=== PATIENT | female | born 1985 | race African-American/Black ===

== ENCOUNTER 2018-02-12 | Emergency (ER) | payer OTHER ==
[~2018-02-12] VITALS: Ht 160 cm; Wt 63.6 kg
[2018-02-12 00:05] VITALS: BP 124/83; TEMP 98.1
[2018-02-12 00:35] LABS: COLLECTION METHOD CLEAN CATCH
[2018-02-12 00:50] LABS: PH 5 (5-8); URINE APPEARANCE Cloudy; URINE BACTERIA Rare /hpf; URINE BILIRUBIN Negative (NEGATIVE); URINE BLOOD 3+ (NEGATIVE); URINE COLOR Yellow; URINE GLUCOSE Negative (NEGATIVE); URINE KETONE Negative (NEGATIVE); URINE LEUKOCYTE ESTERASE 2+ (NEGATIVE); URINE NITRATE Negative (NEGATIVE); URINE PROTEIN(semi-quant) 2+ (NEGATIVE); URINE RBC >50 /hpf; URINE UROBILINOGEN Negative (NEGATIVE)
[2018-02-12 01:20] LABS: BASO % 0.4 % (0.0-2.0); EOS # 0.2 (0.0-0.7); EOS % 2.7 % (0-4.0); GRAN # 4.9 (1.4-6.5); HEMOGLOBIN 12.4 g/dl (12.5-16.0); LYMPH # 1.6 (1.2-3.4); LYMPH % 20.6 % (20.0-51.0); MEAN CELL VOLUME 88 fl (80.0-100.0); MEAN CORPUSCULAR HEMOGLOBIN 30 pg (27.0-31.0); MEAN CORPUSCULAR HGB CONC 34 g/dl (33.0-37.0); MEAN PLATELET VOLUME 10.3 fl (7.4-10.4); MONO # 0.9 (0.1-0.6); PLATELET COUNT 226 K/mm3 (130-400); RED BLOOD COUNT 4.21 M/mm3 (4.10-5.30); REDCELL DISTRIBUTION WIDTH-CV 11.5 % (11.5-14.5)
[2018-02-12 01:22] LABS: HEMATOCRIT 36.9 % (37.0-47.0)
[2018-02-12 01:30] LABS: ALBUMIN 4.2 gm/dL (3.5-5.0); BILIRUBIN,TOTAL 0.3 mg/dL (0.0-1.0); CALCIUM 9.3 mg/dL (8.4-10.2); CREATININE, serum 0.81 mg/dL (0.52-1.25); TOTAL PROTEIN 8.1 gm/dL (6.4-8.2)
[2018-02-12] MEDS ORDERED: CEFTIN 250250 MG/TAB PO (01:54)
[2018-02-12] MEDS ORDERED: NORCO 325 MG-51 TAB PO (01:55)
[2018-02-12 02:54] VITALS: PULSE 85
== END 2018-02-12 02:53 | disposition home or self-care (01) ==
LOC: COL.ER
PROVIDERS: Emergency Medicine; Nurse Practitioner
DX: N39.0 Urinary tract infection, site not specified (principal); Z87.448 Personal history of other diseases of urinary system; Z88.5 Allergy status to narcotic agent; Z98.51 Tubal ligation status
CPT/HCPCS: J0696; J1885; J2405; J7030

== ENCOUNTER 2018-02-24 23:31 | Emergency (ER) | payer OTHER ==
[~2018-02-24] VITALS: Ht 160 cm; Wt 69.1 kg
[~2018-02-24 23:31] MED LIST: CEFTIN 250250 MG/TAB PO; NORCO 325 MG-51 TAB PO
[2018-02-24 23:49] VITALS: BP 120/87; TEMP 97.4
[2018-02-25 00:33] LABS: COLLECTION METHOD CLEAN CATCH
[2018-02-25 00:38] LABS: MUCOUS Present /lpf; PH 5 (5-8); SQUAMOUS EPITHELIAL None Seen /hpf; URINE APPEARANCE Clear; URINE BACTERIA None Seen /hpf; URINE BILIRUBIN Negative (NEGATIVE); URINE BLOOD 1+ (NEGATIVE); URINE COLOR Yellow; URINE GLUCOSE Negative (NEGATIVE); URINE KETONE Negative (NEGATIVE); URINE LEUKOCYTE ESTERASE Negative (NEGATIVE); URINE NITRATE Negative (NEGATIVE); URINE PROTEIN(semi-quant) Negative (NEGATIVE); URINE RBC 0-2 /hpf; URINE UROBILINOGEN Negative (NEGATIVE)
[2018-02-25] MEDS ORDERED: ZOVIRAX400 MG PO ×2 (00:54→01:13)
[2018-02-25] MEDS ORDERED: FLAGYL500 MG PO ×2 (00:58→01:13)
[2018-02-25 01:19] VITALS: PULSE 77
== END 2018-02-25 01:21 | disposition home or self-care (01) ==
LOC: COL.ER 23:31
PROVIDERS: Physician Assistant
DX: R10.2 Pelvic and perineal pain (principal); K21.9 Gastro-esophageal reflux disease without esophagitis; E03.9 Hypothyroidism, unspecified

== ENCOUNTER 2018-04-25 20:56 | Emergency (ER) | payer OTHER ==
[~2018-04-25] VITALS: Ht 160 cm; Wt 61.4 kg
[~2018-04-25 20:56] MED LIST changes: +FLAGYL500 MG PO; +ZOVIRAX400 MG PO
[2018-04-25 21:01] VITALS: TEMP 98
[2018-04-25] MEDS ORDERED: SYNTHROID 0.0.025 MG PO (21:16)
[2018-04-25] MEDS ORDERED: DRISDOL50000 IU PO (21:17)
[2018-04-25] MEDS ORDERED: ZANTAC 150150 MG (21:17)
[2018-04-25] MEDS ORDERED: BENTYL 20MG20 MG/TAB PO (21:17)
[2018-04-25 21:46] LABS: BASO % 0.7 % (0.0-2.0); EOS # 0.1 (0.0-0.7); EOS % 2.5 % (0-4.0); GRAN # 3.3 (1.4-6.5); GRAN % 57.6 % (42.2-75.2); LYMPH # 1.5 (1.2-3.4); LYMPH % 25.7 % (20.0-51.0); MEAN CELL VOLUME 89 fl (80.0-100.0); MEAN CORPUSCULAR HEMOGLOBIN 30 pg (27.0-31.0); MEAN CORPUSCULAR HGB CONC 33 g/dl (33.0-37.0); MEAN PLATELET VOLUME 10.3 fl (7.4-10.4); MONO # 0.7 (0.1-0.6); MONO % 13.1 % (1.7-9.3); PLATELET COUNT 220 K/mm3 (130-400); RED BLOOD COUNT 3.73 M/mm3 (4.10-5.30); REDCELL DISTRIBUTION WIDTH-CV 11.4 % (11.5-14.5)
[2018-04-25 21:47] LABS: HEMATOCRIT 33.1 % (37.0-47.0)
[2018-04-25 22:03] LABS: ALBUMIN 3.5 gm/dL (3.5-5.0); BILIRUBIN,TOTAL 0.4 mg/dL (0.0-1.0); CALCIUM 8.3 mg/dL (8.4-10.2); CREATININE, serum 0.69 mg/dL (0.52-1.25); POTASSIUM 3.8 mmol/L (3.4-5.0); TOTAL PROTEIN 6.5 gm/dL (6.4-8.2)
[2018-04-25 22:13] LABS: COLLECTION METHOD CLEAN CATCH
[2018-04-25 22:23] LABS: MUCOUS Present /lpf; PH 9 (5-8); SQUAMOUS EPITHELIAL 0-2 /hpf; URINE APPEARANCE Clear; URINE BACTERIA None Seen /hpf; URINE BILIRUBIN Negative (NEGATIVE); URINE BLOOD 2+ (NEGATIVE); URINE COLOR Yellow; URINE GLUCOSE Negative (NEGATIVE); URINE KETONE Negative (NEGATIVE); URINE LEUKOCYTE ESTERASE Trace (NEGATIVE); URINE NITRATE Negative (NEGATIVE); URINE PROTEIN(semi-quant) 1+ (NEGATIVE); URINE RBC >50 /hpf; URINE UROBILINOGEN Negative (NEGATIVE)
[2018-04-25 22:33] LABS: THYROID STIMULATING HORMONE 4.81 uIU/mL (0.465-4.680)
[2018-04-25] MEDS ORDERED: ZOFRAN ODT4 MG PO (22:53)
[2018-04-25 23:00] VITALS: BP 99/62; PULSE 69
== END 2018-04-25 23:00 | disposition home or self-care (01) ==
LOC: COL.ER 20:56
PROVIDERS: Physician Assistant
DX: N20.0 Calculus of kidney (principal); N39.0 Urinary tract infection, site not specified; E03.9 Hypothyroidism, unspecified; F41.9 Anxiety disorder, unspecified; Z98.51 Tubal ligation status

== ENCOUNTER 2018-11-01 02:13 | Emergency (ER) | payer OTHER ==
[~2018-11-01] VITALS: Ht 160 cm; Wt 61.4 kg
[~2018-11-01 02:13] MED LIST changes: +BENTYL 20MG20 MG/TAB PO; +DRISDOL50000 IU PO; +SYNTHROID 0.0.025 MG PO; +ZANTAC 150150 MG; +ZOFRAN ODT4 MG PO
[2018-11-01 02:20] VITALS: TEMP 98.9
[2018-11-01] MEDS ORDERED: ZOFRAN ODT4 MG PO (02:43)
[2018-11-01 06:45] VITALS: BP 93/62; PULSE 78
== END 2018-11-01 07:11 | disposition home or self-care (01) ==
LOC: COL.ER 02:13
DX: K52.9 Noninfective gastroenteritis and colitis, unspecified (principal); E03.9 Hypothyroidism, unspecified
CPT/HCPCS: J2550

== ENCOUNTER 2019-10-09 18:28 | Emergency (ER) | payer OTHER ==
[~2019-10-09] VITALS: Ht 160 cm; Wt 63.6 kg
[~2019-10-09 18:28] MED LIST changes: +PHENERGAN 25 TA25 MG PO; +SYNTHROID0.05 MG/TA PO
[2019-10-09 18:33] VITALS: BP 129/77; TEMP 99.7
[2019-10-09 19:00] LABS: BASO % 0.8 % (0.0-2.0); EOS # 0.1 (0.0-0.7); GRAN # 4.1 (1.4-6.5); GRAN % 78.2 % (42.2-75.2); HEMATOCRIT 39.3 % (37.0-47.0); HEMOGLOBIN 12.9 g/dl (12.5-16.0); LYMPH # 0.6 (1.2-3.4); LYMPH % 10.6 % (20.0-51.0); MEAN CELL VOLUME 90 fl (80.0-100.0); MEAN CORPUSCULAR HEMOGLOBIN 30 pg (27.0-31.0); MEAN CORPUSCULAR HGB CONC 33 g/dl (33.0-37.0); MEAN PLATELET VOLUME 10.3 fl (7.4-10.4); MONO # 0.5 (0.1-0.6); PLATELET COUNT 224 K/mm3 (130-400); RED BLOOD COUNT 4.36 M/mm3 (4.10-5.30); REDCELL DISTRIBUTION WIDTH-CV 11.1 % (11.5-14.5)
[2019-10-09 19:14] LABS: ALANINE AMINOTRANSFERASE 16 U/L (9-52); ALBUMIN 4.8 gm/dL (3.5-5.0); ALKALINE PHOSPHATASE 54 U/L (50-136); ANION GAP 10 mmol/L (7-16); AST,SGOT 26 U/L (15-37); BILIRUBIN,TOTAL 0.4 mg/dL (0.0-1.0); BLOOD UREA NITROGEN 11 mg/dL (7-17); C-REACTIVE PROTEIN < 0.5 mg/dL (0.0-0.9); CALCIUM 9.9 mg/dL (8.4-10.2); CARBON DIOXIDE 25 mmol/L (22-30); CHLORIDE 105 mmol/L (98-107); CREATININE, serum 0.72 (0.52-1.25); GLUCOSE 83 mg/dL (74-106); POTASSIUM 3.9 mmol/L (3.4-5.0); SODIUM 139 mmol/L (137-145); TOTAL PROTEIN 8.5 gm/dL (6.4-8.2)
[2019-10-09 20:03] VITALS: PULSE 91
== END 2019-10-09 20:03 | disposition home or self-care (01) ==
LOC: COL.ER 18:28
PROVIDERS: Nurse Practitioner
DX: J09.X2 Influenza due to identified novel influenza A virus with other respiratory manifestations (principal); Z88.5 Allergy status to narcotic agent; Z98.51 Tubal ligation status; Z91.013 Allergy to seafood
CPT/HCPCS: J2405; J7030

== ENCOUNTER 2020-01-15 17:16 | Emergency (ER) | payer OTHER ==
[~2020-01-15] VITALS: Ht 160 cm; Wt 61.4 kg
[2020-01-15] MEDS ORDERED: ZYRTEC 10MG10 MG PO (17:34)
[2020-01-15 18:17] LABS: BASO % 1.1 % (0.0-2.0); EOS # 0.1 (0.0-0.7); EOS % 2.5 % (0-4.0); GRAN # 2.2 (1.4-6.5); GRAN % 59.3 % (42.2-75.2); HEMOGLOBIN 11.8 g/dl (12.5-16.0); LYMPH # 0.7 (1.2-3.4); LYMPH % 20.2 % (20.0-51.0); MEAN CELL VOLUME 89 fl (80.0-100.0); MEAN CORPUSCULAR HEMOGLOBIN 30 pg (27.0-31.0); MEAN CORPUSCULAR HGB CONC 33 g/dl (33.0-37.0); MEAN PLATELET VOLUME 10.6 fl (7.4-10.4); MONO # 0.6 (0.1-0.6); MONO % 16.3 % (1.7-9.3); PLATELET COUNT 219 K/mm3 (130-400); RED BLOOD COUNT 3.98 M/mm3 (4.10-5.30); REDCELL DISTRIBUTION WIDTH-CV 11.4 % (11.5-14.5)
[2020-01-15 18:22] LABS: HEMATOCRIT 35.6 % (37.0-47.0)
[2020-01-15 18:32] LABS: ALANINE AMINOTRANSFERASE 15 U/L (4-34); ALBUMIN 4.4 gm/dL (3.5-5.0); ALKALINE PHOSPHATASE 52 U/L (50-136); ANION GAP 10 mmol/L (7-16); AST,SGOT 29 U/L (15-37); BILIRUBIN,TOTAL 0.3 mg/dL (0.0-1.0); BLOOD UREA NITROGEN 13 mg/dL (7-17); CALCIUM 9.2 mg/dL (8.4-10.2); CARBON DIOXIDE 23 mmol/L (22-30); CHLORIDE 106 mmol/L (98-107); CREATININE, serum 0.71 (0.52-1.25); GLUCOSE 94 mg/dL (74-106); POTASSIUM 3.9 mmol/L (3.4-5.0); SODIUM 140 mmol/L (137-145); TOTAL PROTEIN 7.6 gm/dL (6.4-8.2)
[2020-01-15 18:33] LABS: C-REACTIVE PROTEIN < 0.5 mg/dL (0.0-0.9)
[2020-01-15 18:38] LABS: STREP SCREEN NEGATIVE
[2020-01-15 19:16] VITALS: BP 140/89; PULSE 97; TEMP 101.4
== END 2020-01-15 19:25 | disposition home or self-care (01) ==
LOC: COL.ER 17:16
PROVIDERS: Emergency Medicine
DX: R05 Cough (principal); M79.7 Fibromyalgia; E03.9 Hypothyroidism, unspecified; Z88.5 Allergy status to narcotic agent
CPT/HCPCS: J7030

== ENCOUNTER 2020-01-24 11:34 | Inpatient (IN) | payer OTHER ==
[~2020-01-24] VITALS: Ht 160 cm; Wt 73.5 kg
[~2020-01-24 11:34] MED LIST changes: -SYNTHROID 0.0.025 MG PO; +ZYRTEC 10MG10 MG PO
[2020-01-24 12:21] LABS: COLLECTION METHOD CLEAN CATCH
[2020-01-24 12:31] LABS: MUCOUS Present /lpf; PH 8 (5-8); URINE APPEARANCE Hazy; URINE BACTERIA None Seen /hpf; URINE BILIRUBIN Negative (NEGATIVE); URINE BLOOD Negative (NEGATIVE); URINE COLOR Yellow; URINE GLUCOSE Negative (NEGATIVE); URINE KETONE Trace (NEGATIVE); URINE LEUKOCYTE ESTERASE Negative (NEGATIVE); URINE NITRATE Negative (NEGATIVE); URINE PROTEIN(semi-quant) 1+ (NEGATIVE); URINE RBC 0-2 /hpf; URINE UROBILINOGEN >=4.0 mg/dL (NEGATIVE)
[2020-01-24 12:39] LABS: BASO % 0.2 % (0.0-2.0); EOS % 0.5 % (0-4.0); GRAN # 2.3 (1.4-6.5); GRAN % 51.8 % (42.2-75.2); HEMATOCRIT 37.3 % (37.0-47.0); HEMOGLOBIN 12.5 g/dl (12.5-16.0); LYMPH # 1.7 (1.2-3.4); LYMPH % 38.7 % (20.0-51.0); MEAN CELL VOLUME 87 fl (80.0-100.0); MEAN CORPUSCULAR HEMOGLOBIN 29 pg (27.0-31.0); MEAN CORPUSCULAR HGB CONC 34 g/dl (33.0-37.0); MEAN PLATELET VOLUME 11.1 fl (7.4-10.4); MONO # 0.4 (0.1-0.6); MONO % 8.8 % (1.7-9.3); PLATELET COUNT 200 K/mm3 (130-400); RED BLOOD COUNT 4.31 M/mm3 (4.10-5.30); REDCELL DISTRIBUTION WIDTH-CV 11.2 % (11.5-14.5)
[2020-01-24 12:40] LABS: ALANINE AMINOTRANSFERASE 15 U/L (4-34); ALBUMIN 4.6 gm/dL (3.5-5.0); ALKALINE PHOSPHATASE 56 U/L (50-136); ANION GAP 10 mmol/L (7-16); AST,SGOT 30 U/L (15-37); BILIRUBIN,TOTAL 0.6 mg/dL (0.0-1.0); BLOOD UREA NITROGEN 10 mg/dL (7-17); C-REACTIVE PROTEIN < 0.5 mg/dL (0.0-0.9); CALCIUM 9.3 mg/dL (8.4-10.2); CARBON DIOXIDE 25 mmol/L (22-30); CHLORIDE 103 mmol/L (98-107); CREATININE, serum 0.64 (0.52-1.25); GLUCOSE 91 mg/dL (74-106); LIPASE 81 U/L (23-300); MAGNESIUM 1.8 mg/dL (1.6-2.3); POTASSIUM 3.5 mmol/L (3.4-5.0); SODIUM 139 mmol/L (137-145); TOTAL PROTEIN 8.2 gm/dL (6.4-8.2)
[2020-01-24 15:17] VITALS: BP 107/82; PULSE 91; TEMP 98.6
[2020-01-24 16:06] LABS: INR 1.1 (0.8-3.0); PROTHROMBIN TIME 12.9 SECONDS (9.7-12.8)
[2020-01-24 16:13] LABS: CREATINE KINASE 120 U/L (30-135); LACTATE DEHYDROGENASE 771 U/L (313-618)
[2020-01-24 16:33] LABS: TROPONIN-I < 0.012 ng/mL (0.000-0.035)
[2020-01-24 17:01] VITALS: BP 114/81; PULSE 80; TEMP 98
--- NOTE | 2020-01-24 20:15 | NUR ---
Assessment complete; VS stable. Denies any concerns at this time. Will continue to monitor.
[2020-01-24 21:06] VITALS: BP 96/60; PULSE 71; TEMP 97.9
[2020-01-25 00:04] VITALS: BP 110/75; PULSE 74; TEMP 98.8
[2020-01-25 05:30] LABS: BASO % 0.6 % (0.0-2.0); EOS # 0.1 (0.0-0.7); EOS % 1.4 % (0-4.0); GRAN # 1.5 (1.4-6.5); GRAN % 40.8 % (42.2-75.2); HEMOGLOBIN 10.6 g/dl (12.5-16.0); LYMPH # 1.6 (1.2-3.4); LYMPH % 44.1 % (20.0-51.0); MEAN CELL VOLUME 90 fl (80.0-100.0); MEAN CORPUSCULAR HEMOGLOBIN 30 pg (27.0-31.0); MEAN CORPUSCULAR HGB CONC 33 g/dl (33.0-37.0); MEAN PLATELET VOLUME 10.9 fl (7.4-10.4); MONO # 0.5 (0.1-0.6); MONO % 12.8 % (1.7-9.3); PLATELET COUNT 167 K/mm3 (130-400); RED BLOOD COUNT 3.59 M/mm3 (4.10-5.30); REDCELL DISTRIBUTION WIDTH-CV 11.3 % (11.5-14.5)
[2020-01-25 05:32] LABS: HEMATOCRIT 32.3 % (37.0-47.0)
[2020-01-25 05:42] LABS: ALBUMIN 3.6 gm/dL (3.5-5.0); BILIRUBIN,TOTAL 0.5 mg/dL (0.0-1.0); CALCIUM 7.9 mg/dL (8.4-10.2); CREATININE, serum 0.6 (0.52-1.25); MAGNESIUM 1.8 mg/dL (1.6-2.3); TOTAL PROTEIN 6.6 gm/dL (6.4-8.2)
[2020-01-25 06:05] VITALS: BP 110/75; PULSE 67; TEMP 97.5
--- NOTE | 2020-01-25 06:08 | NUR ---
At bedside to assist up to commode. Patient reports nausea has mostly subsided and requesting to try jello. No other concerns at this time. Will continue to monitor.
--- NOTE | 2020-01-25 07:30 | NUR ---
Recieved report from CHELSEA Madird. Patient is resting comfortably in bed. Call light and bedside table within reach
[2020-01-25 08:00] VITALS: BP 97/65; PULSE 66; TEMP 97.9
--- NOTE | 2020-01-25 10:15 | NUR ---
SW contacted the patient's phone to discuss discharge plan. The patient lives in [place] with her fiance, Shay Fritz ([phone]), and her six children. She states that Shay is taking care of them while she is here. She reports independence with ADLs and does not have any DME. The patient's PCP is Dr. Clay Espino and she receives her medications at [facility]. She reports no difficulties obtaining her meds. The patient does not have advanced directives completed. She states that her mother, Autumn Clarke ([phone]) is her legal next of kin. The patient plans to return home with her fiance and children upon discharge. The patient is COVID19 positive. No additional needs at this time, but SW to continue to follow as needed.
[2020-01-25 12:00] VITALS: BP 112/66; PULSE 80; TEMP 98.1
[2020-01-25 16:00] VITALS: BP 105/77; PULSE 81; TEMP 97.9
--- NOTE | 2020-01-25 19:45 | NUR ---
This nurse gave report to CHELSEA Madrid. Patient is resting comfortably in bed. Call light and bedside table are within reach.
--- NOTE | 2020-01-25 22:15 | NUR ---
Patient reporting mild nausea; administered PRN zofran. Denies any other complaints at this time. Will continue to monitor.
[2020-01-25 22:20] VITALS: BP 98/68; PULSE 75; TEMP 97.6
--- NOTE | 2020-01-26 01:29 | NUR ---
Up to commode independently; no concerns at this time.
[2020-01-26 01:50] VITALS: PULSE 62
[2020-01-26 05:28] VITALS: BP 111/53; PULSE 72; TEMP 97
--- NOTE | 2020-01-26 05:32 | NUR ---
At bedside" patient reports feeling "better" . Denies any nausea. Also reports a return of her sense of taste and smell. No concerns and this time. Will continue to monitor.
[2020-01-26 06:39] LABS: BASO % 0.3 % (0.0-2.0); EOS # 0.1 (0.0-0.7); EOS % 2.8 % (0-4.0); GRAN # 1.3 (1.4-6.5); GRAN % 45.8 % (42.2-75.2); HEMOGLOBIN 10.8 g/dl (12.5-16.0); LYMPH # 1.1 (1.2-3.4); LYMPH % 38.3 % (20.0-51.0); MEAN CELL VOLUME 90 fl (80.0-100.0); MEAN CORPUSCULAR HEMOGLOBIN 29 pg (27.0-31.0); MEAN CORPUSCULAR HGB CONC 32 g/dl (33.0-37.0); MEAN PLATELET VOLUME 10.9 fl (7.4-10.4); MONO # 0.4 (0.1-0.6); MONO % 12.5 % (1.7-9.3); PLATELET COUNT 176 K/mm3 (130-400); RED BLOOD COUNT 3.76 M/mm3 (4.10-5.30); REDCELL DISTRIBUTION WIDTH-CV 11.2 % (11.5-14.5)
[2020-01-26 06:45] LABS: HEMATOCRIT 33.7 % (37.0-47.0)
[2020-01-26 06:58] LABS: ALBUMIN 3.7 gm/dL (3.5-5.0); BILIRUBIN,TOTAL 0.5 mg/dL (0.0-1.0); CALCIUM 8.3 mg/dL (8.4-10.2); CREATININE, serum 0.59 (0.52-1.25); POTASSIUM 3.8 mmol/L (3.4-5.0); TOTAL PROTEIN 6.9 gm/dL (6.4-8.2)
[2020-01-26 09:34] VITALS: BP 112/76; PULSE 77; TEMP 98
[2020-01-26] MEDS ORDERED: ZOFRAN ODT4 MG PO (10:53)
[2020-01-26] MEDS ORDERED: OMNICEF 300MG300 MG PO (11:04)
[2020-01-26] MEDS ORDERED: DOXYCYCLINE HY100 MG PO (11:04)
--- NOTE | 2020-01-26 14:43 | NUR ---
patient is alert and oriented. denies any pain. complain of nausea in the morning. i administered Zofran IV once. patient said she is breathing better. IV was discontinued. patient discharged with prescription for Deoxycycline, Cefdinir, and zofran. patient received education on COVID19, dehydration, fever, nausea and vomit, and new medication.
== END 2020-01-26 13:58 | disposition home or self-care (01) | DRG 177 ==
LOC: COL.ER 11:34 → EU 14:43 → COL.ER 14:43 → EU 14:43
PROVIDERS: Emergency Medicine; Physician Assistant; ADMIT Hospitalist
DX: U07.1 COVID-19 (principal); J15.9 Unspecified bacterial pneumonia; I95.9 Hypotension, unspecified; E03.9 Hypothyroidism, unspecified; D72.810 Lymphocytopenia; R11.2 Nausea with vomiting, unspecified; E86.0 Dehydration; Z09 Encounter for follow-up examination after completed treatment for conditions other than malignant neoplasm; Z87.442 Personal history of urinary calculi; Z98.51 Tubal ligation status
CPT/HCPCS: 99222-AI; 99233-AI; 99239; A4216; C9113; J0456; J0696; J2405; J3480; J7030; J7050

== ENCOUNTER 2020-02-02 15:53 | Emergency (ER) | payer OTHER ==
[~2020-02-02] VITALS: Ht 160 cm; Wt 68.2 kg
[~2020-02-02 15:53] MED LIST changes: +DOXYCYCLINE HY100 MG PO; +OMNICEF 300MG300 MG PO
[2020-02-02 16:51] LABS: BASO % 0.9 % (0.0-2.0); EOS # 0.1 (0.0-0.7); EOS % 2.8 % (0-4.0); GRAN % 42.4 % (42.2-75.2); HEMOGLOBIN 11.5 g/dl (12.5-16.0); LYMPH # 1.9 (1.2-3.4); LYMPH % 40.8 % (20.0-51.0); MEAN CELL VOLUME 88 fl (80.0-100.0); MEAN CORPUSCULAR HEMOGLOBIN 29 pg (27.0-31.0); MEAN CORPUSCULAR HGB CONC 33 g/dl (33.0-37.0); MEAN PLATELET VOLUME 10.5 fl (7.4-10.4); MONO # 0.6 (0.1-0.6); MONO % 12.9 % (1.7-9.3); PLATELET COUNT 277 K/mm3 (130-400); RED BLOOD COUNT 3.92 M/mm3 (4.10-5.30); REDCELL DISTRIBUTION WIDTH-CV 11.7 % (11.5-14.5)
[2020-02-02 16:52] LABS: HEMATOCRIT 34.5 % (37.0-47.0)
[2020-02-02 17:02] LABS: COLLECTION METHOD CLEAN CATCH
[2020-02-02 17:04] LABS: ALANINE AMINOTRANSFERASE 35 U/L (4-34); ALBUMIN 4.6 gm/dL (3.5-5.0); ALKALINE PHOSPHATASE 51 U/L (50-136); ANION GAP 8 mmol/L (7-16); AST,SGOT 31 U/L (15-37); BILIRUBIN,TOTAL 0.5 mg/dL (0.0-1.0); BLOOD UREA NITROGEN 12 mg/dL (7-17); CALCIUM 9.8 mg/dL (8.4-10.2); CARBON DIOXIDE 24 mmol/L (22-30); CHLORIDE 106 mmol/L (98-107); CREATININE, serum 0.75 (0.52-1.25); GLUCOSE 97 mg/dL (74-106); POTASSIUM 3.8 mmol/L (3.4-5.0); SODIUM 138 mmol/L (137-145); TOTAL PROTEIN 8.3 gm/dL (6.4-8.2)
[2020-02-02 17:10] LABS: MUCOUS Present /lpf; PH 7 (5-8); URINE APPEARANCE Hazy; URINE BACTERIA None Seen /hpf; URINE BILIRUBIN Negative (NEGATIVE); URINE BLOOD Negative (NEGATIVE); URINE COLOR Yellow; URINE GLUCOSE Negative (NEGATIVE); URINE KETONE Negative (NEGATIVE); URINE LEUKOCYTE ESTERASE Negative (NEGATIVE); URINE NITRATE Negative (NEGATIVE); URINE PROTEIN(semi-quant) Negative (NEGATIVE); URINE RBC 0-2 /hpf; URINE UROBILINOGEN Negative (NEGATIVE)
[2020-02-02 17:15] LABS: C-REACTIVE PROTEIN < 0.5 mg/dL (0.0-0.9); TROPONIN-I < 0.012 ng/mL (0.000-0.035)
[2020-02-02] MEDS ORDERED: ZOFRAN ODT4 MG PO (18:09)
[2020-02-02 19:05] VITALS: BP 107/62; PULSE 95; TEMP 98.4
== END 2020-02-02 19:05 | disposition home or self-care (01) ==
LOC: COL.ER 15:53
PROVIDERS: Nurse Practitioner
DX: R55 Syncope and collapse (principal); U07.1 COVID-19; E03.9 Hypothyroidism, unspecified; Z98.51 Tubal ligation status; Z88.5 Allergy status to narcotic agent
CPT/HCPCS: J7030; Q9967

== ENCOUNTER 2021-09-04 03:37 | Emergency (ER) | payer OTHER ==
[~2021-09-04] VITALS: Ht 160 cm; Wt 66.4 kg
[2021-09-04 03:43] VITALS: TEMP 98.1
[2021-09-04 04:05] LABS: COLLECTION METHOD CLEAN CATCH
[2021-09-04 04:22] LABS: MUCOUS Present (NOT PRESENT); PH 7 (5-8); SQUAMOUS EPITHELIAL 0-2 /hpf (0-10); URINE APPEARANCE Clear (CLEAR/HAZY); URINE BACTERIA None Seen (NONE SEEN); URINE BILIRUBIN Negative (NEGATIVE); URINE BLOOD Negative (NEGATIVE); URINE COLOR Yellow (YELLOW); URINE GLUCOSE Negative (NEGATIVE); URINE KETONE Negative (NEGATIVE); URINE LEUKOCYTE ESTERASE Negative (NEGATIVE); URINE NITRATE Negative (NEGATIVE); URINE PROTEIN(semi-quant) Negative (NEGATIVE); URINE RBC None Seen /hpf (0-2); URINE UROBILINOGEN Negative (NEGATIVE)
[2021-09-04 04:29] LABS: BASO # 0.1 K/mm3 (0.0-0.2); EOS # 0.2 K/mm3 (0.0-0.7); EOS % 4.9 % (0-4.0); GRAN # 1.9 K/mm3 (1.4-6.5); GRAN % 38.7 % (42.2-75.2); HEMOGLOBIN 12.3 g/dl (12.5-16.0); LYMPH % 40.7 % (20.0-51.0); MEAN CELL VOLUME 88 fl (80.0-100.0); MEAN CORPUSCULAR HEMOGLOBIN 30 pg (27.0-31.0); MEAN CORPUSCULAR HGB CONC 34 g/dl (33.0-37.0); MEAN PLATELET VOLUME 10.4 fl (7.4-10.4); MONO # 0.7 K/mm3 (0.1-0.6); MONO % 14.5 % (1.7-9.3); PLATELET COUNT 265 K/mm3 (130-400); RED BLOOD COUNT 4.11 M/mm3 (4.10-5.30); REDCELL DISTRIBUTION WIDTH-CV 11.4 % (11.5-14.5)
[2021-09-04 04:39] LABS: ALBUMIN 4.6 gm/dL (3.5-5.0); CALCIUM 10.2 mg/dL (8.4-10.2)
[2021-09-04 04:41] LABS: HEMATOCRIT 36.1 % (37.0-47.0)
[2021-09-04 04:54] LABS: BILIRUBIN,TOTAL 0.4 mg/dL (0.2-1.2); C-REACTIVE PROTEIN 0.05 mg/dL (0.00-0.50); CREATININE, serum 0.89 mg/dL (0.57-1.11); TOTAL PROTEIN 7.4 gm/dL (6.2-8.1)
[2021-09-04 06:55] VITALS: BP 113/83; PULSE 75
== END 2021-09-04 06:56 | disposition home or self-care (01) ==
LOC: COL.ER 03:37
PROVIDERS: Emergency Medicine
DX: R10.9 Unspecified abdominal pain (principal); R19.7 Diarrhea, unspecified; Z87.448 Personal history of other diseases of urinary system; Z20.822 Contact with and (suspected) exposure to COVID-19
CPT/HCPCS: J1885; J7030

== ENCOUNTER 2021-11-24 18:35 | Emergency (ER) | payer OTHER ==
[~2021-11-24] VITALS: Ht 160 cm; Wt 63.6 kg
[2021-11-24 18:40] VITALS: TEMP 98.2
[2021-11-24 19:03] LABS: COLLECTION METHOD CLEAN CATCH
[2021-11-24 19:20] LABS: MUCOUS Present (NOT PRESENT); SQUAMOUS EPITHELIAL 0-2 /hpf (0-10); URINE BACTERIA Rare /hpf (NONE SEEN); URINE RBC >50 /hpf (0-2)
[2021-11-24 19:21] LABS: PH 6 (5-8); URINE APPEARANCE Cloudy (CLEAR/HAZY); URINE COLOR Amber (YELLOW)
[2021-11-24 19:22] LABS: URINE BILIRUBIN Negative (NEGATIVE); URINE BLOOD 3+ (NEGATIVE); URINE GLUCOSE Negative (NEGATIVE); URINE KETONE Negative (NEGATIVE); URINE LEUKOCYTE ESTERASE 2+ (NEGATIVE); URINE NITRATE Positive (NEGATIVE); URINE PROTEIN(semi-quant) 2+ (NEGATIVE); URINE UROBILINOGEN Negative (NEGATIVE)
[2021-11-24] MEDS ORDERED: CEFTIN 250250 MG/TAB PO (20:12)
[2021-11-24 20:31] VITALS: BP 144/70; PULSE 76
== END 2021-11-24 20:30 | disposition home or self-care (01) ==
LOC: COL.ER 18:35
PROVIDERS: Nurse Practitioner
DX: N39.0 Urinary tract infection, site not specified (principal)

== ENCOUNTER 2022-04-08 05:28 | Emergency (ER) | payer OTHER ==
[~2022-04-08] VITALS: Ht 160 cm; Wt 63.6 kg
[2022-04-08 05:33] VITALS: BP 109/72; TEMP 98.2
[2022-04-08 06:45] LABS: COLLECTION METHOD CLEAN CATCH
[2022-04-08 06:50] LABS: MUCOUS Present (NOT PRESENT); PH 5 (5-8); URINE APPEARANCE Clear (CLEAR/HAZY); URINE BACTERIA None Seen /hpf (NONE SEEN); URINE BILIRUBIN Negative (NEGATIVE); URINE BLOOD 1+ (NEGATIVE); URINE COLOR Yellow (YELLOW); URINE GLUCOSE Negative (NEGATIVE); URINE KETONE Negative (NEGATIVE); URINE LEUKOCYTE ESTERASE Negative (NEGATIVE); URINE NITRATE Negative (NEGATIVE); URINE PROTEIN(semi-quant) Negative (NEGATIVE); URINE RBC 0-2 /hpf (0-2); URINE UROBILINOGEN Negative (NEGATIVE)
[2022-04-08] MEDS ORDERED: PREDNISONE20 MG PO (07:55)
[2022-04-08 08:20] VITALS: PULSE 16
== END 2022-04-08 08:20 | disposition home or self-care (01) ==
LOC: COL.ER 05:28
PROVIDERS: Emergency Medicine Emergency Medical Services
DX: S76.011A Strain of muscle, fascia and tendon of right hip, initial encounter (principal); W18.39XA Other fall on same level, initial encounter; Y93.67 Activity, basketball

== ENCOUNTER 2022-07-03 03:49 | Emergency (ER) | payer OTHER ==
[~2022-07-03] VITALS: Ht 160 cm; Wt 68.2 kg
[~2022-07-03 03:49] MED LIST changes: +PREDNISONE20 MG PO
[2022-07-03 04:15] VITALS: TEMP 98.6
[2022-07-03 04:28] LABS: COLLECTION METHOD CLEAN CATCH
[2022-07-03 04:45] LABS: MUCOUS Present (NOT PRESENT); SQUAMOUS EPITHELIAL 0-2 /hpf (0-10); URINE BACTERIA None Seen /hpf (NONE SEEN)
[2022-07-03 04:46] LABS: URINE APPEARANCE Clear (CLEAR/HAZY); URINE BLOOD TRACE-INTACT (NEGATIVE); URINE COLOR Yellow (YELLOW); URINE GLUCOSE Negative (NEGATIVE); URINE KETONE Negative (NEGATIVE); URINE NITRATE Negative (NEGATIVE); URINE PROTEIN(semi-quant) Negative (NEGATIVE); URINE UROBILINOGEN 0.2 E.U/dL (0.2-1.0)
[2022-07-03] MEDS ORDERED: CEPHALEXIN500 M1 PO (06:02)
[2022-07-03 06:45] VITALS: BP 114/77; PULSE 82
[2022-07-03] MEDS ORDERED: ZOFRAN ODT4 MG PO (10:52)
== END 2022-07-03 06:45 | disposition home or self-care (01) ==
LOC: COL.ER 03:49
PROVIDERS: Emergency Medicine
DX: B37.3 Candidiasis of vulva and vagina (principal)
CPT/HCPCS: J0696

== ENCOUNTER → 2022-07-09 | Outpatient (CLI) | payer OTHER ==
[~2022-07-09] MED LIST changes: +CEPHALEXIN500 M1 PO
== END ==
LOC: COL.RAD 12:58
DX: M25.551 Pain in right hip (principal)
CPT/HCPCS: J3301; Q9967

== ENCOUNTER 2022-07-13 22:27 | Emergency (ER) | payer OTHER ==
[~2022-07-13] VITALS: Ht 160 cm; Wt 63.6 kg
[2022-07-13 22:48] LABS: COLLECTION METHOD CLEAN CATCH
[2022-07-13 23:05] LABS: MUCOUS Present (NOT PRESENT); SQUAMOUS EPITHELIAL 0-2 /hpf (0-10); URINE APPEARANCE Clear (CLEAR/HAZY); URINE BACTERIA None Seen /hpf (NONE SEEN); URINE COLOR Yellow (YELLOW); URINE RBC 0-2 /hpf (0-2)
[2022-07-13 23:06] LABS: URINE BLOOD Negative (NEGATIVE); URINE GLUCOSE Negative (NEGATIVE); URINE KETONE Negative (NEGATIVE); URINE NITRATE Negative (NEGATIVE); URINE PROTEIN(semi-quant) Negative (NEGATIVE); URINE UROBILINOGEN 0.2 E.U/dL (0.2-1.0)
[2022-07-13 23:17] LABS: BASO % 0.7 % (0.0-2.0); EOS # 0.1 K/mm3 (0.0-0.7); EOS % 1.6 % (0.0-4.0); GRAN # 2.4 K/mm3 (1.4-6.5); GRAN % 42.8 % (42.2-75.2); HEMATOCRIT 37.1 % (37.0-47.0); HEMOGLOBIN 12.3 g/dl (12.5-16.0); LYMPH # 2.5 K/mm3 (1.2-3.4); LYMPH % 43.7 % (20.0-51.0); MEAN CELL VOLUME 90 fl (80.0-100.0); MEAN CORPUSCULAR HEMOGLOBIN 30 pg (27-31); MEAN CORPUSCULAR HGB CONC 33 g/dl (33.0-37.0); MEAN PLATELET VOLUME 10.3 fl (7.4-10.4); MONO # 0.6 K/mm3 (0.1-0.6); PLATELET COUNT 264 K/mm3 (130-400); RED BLOOD COUNT 4.13 M/mm3 (4.10-5.30); REDCELL DISTRIBUTION WIDTH-CV 11.2 % (11.5-14.5)
[2022-07-13 23:37] LABS: ALBUMIN 3.8 gm/dL (3.5-5.0); BILIRUBIN,TOTAL 0.4 mg/dL (0.2-1.2); C-REACTIVE PROTEIN 0.03 mg/dL (0.00-0.50); CALCIUM 8.9 mg/dL (8.4-10.2); CREATININE, serum 0.84 mg/dL (0.57-1.11)
[2022-07-14 00:29] VITALS: BP 118/78; PULSE 82; TEMP 98.4
== END 2022-07-14 00:29 | disposition home or self-care (01) ==
LOC: COL.ER 22:27
PROVIDERS: Nurse Practitioner
DX: R10.9 Unspecified abdominal pain (principal); Z32.02 Encounter for pregnancy test, result negative
CPT/HCPCS: J1885; J2405; J7030

== ENCOUNTER → 2022-07-15 | Outpatient (CLI) | payer OTHER | LOC: COL.RAD 16:01 | DX: K59.00 Constipation, unspecified (principal) ==

== ENCOUNTER 2022-08-11 10:15 | Emergency (ER) | payer OTHER ==
[~2022-08-11] VITALS: Ht 160 cm; Wt 69.1 kg
[2022-08-11 10:34] VITALS: TEMP 97
[2022-08-11 11:50] VITALS: BP 126/78; PULSE 85
== END 2022-08-11 11:54 | disposition home or self-care (01) ==
LOC: COL.ER 10:15
DX: S43.401A Unspecified sprain of right shoulder joint, initial encounter (principal); X50.1XXA Overexertion from prolonged static or awkward postures, initial encounter

== ENCOUNTER 2022-11-27 18:13 | Emergency (ER) | payer OTHER ==
[~2022-11-27] VITALS: Ht 157.5 cm; Wt 72.7 kg
[2022-11-27 18:18] VITALS: BP 105/62; TEMP 98.2
[2022-11-27] MEDS ORDERED: PERCOCET 325 MG1 TA2 PO (20:08)
[2022-11-27 20:22] VITALS: PULSE 79
== END 2022-11-27 20:23 | disposition home or self-care (01) ==
LOC: COL.ER 18:13
DX: S83.92XA Sprain of unspecified site of left knee, initial encounter (principal); S76.912A Strain of unspecified muscles, fascia and tendons at thigh level, left thigh, initial encounter; X50.1XXA Overexertion from prolonged static or awkward postures, initial encounter; Y93.67 Activity, basketball
CPT/HCPCS: L1830

== ENCOUNTER 2023-11-06 05:29 | Emergency (ER) | payer OTHER ==
[~2023-11-06] VITALS: Ht 157.5 cm; Wt 70.5 kg
[~2023-11-06 05:29] MED LIST changes: +PERCOCET 325 MG1 TA2 PO; +PYRIDIUM200 M1 PO
[2023-11-06 05:31] VITALS: TEMP 100
[2023-11-06] MEDS ORDERED: Acetaminophen 500 MG TAB PO ONE (05:45)
[2023-11-06 06:26] VITALS: BP 120/73; PULSE 80
== END 2023-11-06 06:23 | disposition home or self-care (01) ==
LOC: COL.ER 05:29
DX: U07.1 COVID-19 (principal); R05.9 Cough, unspecified; R53.83 Other fatigue; R09.81 Nasal congestion; R51.9 Headache, unspecified; R50.9 Fever, unspecified; R09.89 Other specified symptoms and signs involving the circulatory and respiratory systems

== ENCOUNTER 2023-11-08 17:35 | Emergency (ER) | payer OTHER ==
[~2023-11-08] VITALS: Ht 157.5 cm; Wt 70.5 kg
[2023-11-08 17:39] VITALS: TEMP 99.8
[2023-11-08] MEDS ORDERED: NS 1,000 ML IV ONE (18:15)
[2023-11-08] MEDS ORDERED: Acetaminophen 500 MG TAB PO ONE (18:15)
[2023-11-08] MEDS ORDERED: LORazepam 2 MG/ML 1 ML VIAL IV ONE (18:15)
[2023-11-08 18:23] LABS: BASO % 0.4 % (0.0-2.0); EOS # 0.2 K/mm3 (0.0-0.7); EOS % 3.2 % (0.0-4.0); GRAN # 2.6 K/mm3 (1.4-6.5); GRAN % 54.5 % (42.2-75.2); HEMOGLOBIN 12.1 g/dl (12.5-16.0); LYMPH # 1.2 K/mm3 (1.2-3.4); LYMPH % 26.3 % (20.0-51.0); MEAN CELL VOLUME 89 fl (80.0-100.0); MEAN CORPUSCULAR HEMOGLOBIN 29 pg (27-31); MEAN CORPUSCULAR HGB CONC 33 g/dl (33.0-37.0); MEAN PLATELET VOLUME 10.5 fl (7.4-10.4); MONO # 0.7 K/mm3 (0.1-0.6); MONO % 15.4 % (1.7-9.3); PLATELET COUNT 219 K/mm3 (130-400); RED BLOOD COUNT 4.12 M/mm3 (4.10-5.30); REDCELL DISTRIBUTION WIDTH-CV 11.3 % (11.5-14.5)
[2023-11-08 18:24] LABS: HEMATOCRIT 36.5 % (37.0-47.0)
[2023-11-08 18:34] LABS: ALANINE AMINOTRANSFERASE 14 U/L (0-55); ALBUMIN 3.8 gm/dL (3.5-5.0); ALKALINE PHOSPHATASE 40 U/L (40-150); ANION GAP 10 mmol/L (7-16); AST,SGOT 17 U/L (5-34); BILIRUBIN,TOTAL 0.7 mg/dL (0.2-1.2); BLOOD UREA NITROGEN 7 mg/dL (7-19); CALCIUM 8.8 mg/dL (8.4-10.2); CARBON DIOXIDE 20 mmol/L (22-29); CHLORIDE 107 mmol/L (98-107); CREATININE, serum 0.72 mg/dL (0.57-1.11); GLUCOSE 92 mg/dL (70-99); POTASSIUM 3.5 mmol/L (3.5-4.5); SODIUM 137 mmol/L (136-145); TOTAL PROTEIN 7.4 gm/dL (6.2-8.1)
[2023-11-08 18:40] LABS: COLLECTION METHOD CLEAN CATCH
[2023-11-08 18:43] LABS: TROPONIN-I < 0.010 ng/mL (0.00-0.033)
[2023-11-08 18:55] LABS: PH 8.5 (5.0-8.5); URINE APPEARANCE Hazy (CLEAR/HAZY); URINE BLOOD 3+ (NEGATIVE); URINE COLOR Yellow (YELLOW); URINE GLUCOSE Negative (NEGATIVE); URINE KETONE 1+ (NEGATIVE); URINE NITRATE Negative (NEGATIVE); URINE PROTEIN(semi-quant) TRACE (NEGATIVE)
[2023-11-08 18:56] LABS: URINE BACTERIA Occasional /hpf (NONE SEEN)
[2023-11-08] MEDS ORDERED: Iohexol 300 - 100 ML VIAL IV ONE (19:30)
[2023-11-08] MEDS ORDERED: NS 60 ML IV ONE (19:31)
[2023-11-08] MEDS ORDERED: Ibuprofen 600 MG TAB PO ONE (21:00)
[2023-11-08 21:12] VITALS: BP 109/75; PULSE 103
== END 2023-11-08 21:12 | disposition home or self-care (01) ==
LOC: COL.ER 17:35
PROVIDERS: Nurse Practitioner
DX: U07.1 COVID-19 (principal); R53.83 Other fatigue; R06.02 Shortness of breath
CPT/HCPCS: J2060; J7030; Q9967

== ENCOUNTER 2024-01-10 05:25 | Emergency (ER) | payer OTHER ==
[~2024-01-10] VITALS: Ht 160 cm; Wt 68.2 kg
[2024-01-10 05:30] VITALS: BP 115/82; PULSE 80; TEMP 98.5
[2024-01-10 05:40] LABS: COLLECTION METHOD CLEAN CATCH
[2024-01-10 05:51] LABS: PH 5.5 (5.0-8.5); URINE APPEARANCE TURBID (CLEAR/HAZY); URINE BLOOD 3+ (NEGATIVE); URINE COLOR RED (YELLOW); URINE GLUCOSE NEGATIVE (NEGATIVE); URINE KETONE NEGATIVE (NEGATIVE); URINE NITRATE NEGATIVE (NEGATIVE); URINE PROTEIN(semi-quant) 2+ (NEGATIVE); URINE UROBILINOGEN 0.2 E.U/dL (0.2-1.0)
[2024-01-10] MEDS ORDERED: BACTRIM DS 8001 TAB PO (05:59)
[2024-01-10] MEDS ORDERED: Sulfamethoxazole/Trimethoprim 800-160 MG TAB PO ONE (06:00)
== END 2024-01-10 06:15 | disposition home or self-care (01) ==
LOC: COL.ER 05:25
PROVIDERS: Emergency Medicine
DX: N39.0 Urinary tract infection, site not specified (principal)